=== PATIENT | male | born 1990 | race Caucasian/White ===

== ENCOUNTER 2017-07-15 00:50 | Emergency (ER) | payer MEDICAID | END 2017-07-15 01:13 | disposition home or self-care (01) | LOC: D.ER 00:50 | DX: J06.9 Acute upper respiratory infection, unspecified (principal); J20.9 Acute bronchitis, unspecified; R51 Headache; H92.02 Otalgia, left ear; F17.200 Nicotine dependence, unspecified, uncomplicated ==

== ENCOUNTER 2017-12-10 19:35 | Emergency (ER) | payer MEDICAID ==
[~2017-12-10] VITALS: Ht 177.8 cm; Wt 84.1 kg
[2017-12-10 19:43] VITALS: Ht 177.8 cm; Wt 84.1 kg
[2017-12-10 20:04] LABS: HEMOGLOBIN 14.6 g/dL (13.5-17.5); LYMPHOCYTES 9.2 % (15-50); MCH 30.2 pg (26.0-34.0); MCHC 34.8 g/dL (31.0-37.0); MCV 86.8 fL (80.0-100.0); MEAN PLATELET VOLUME 8.8 fL (7.4-10.4); NEUTROPHILS 80.3 % (40-80); PLATELET COUNT 285 10x3/uL (130-400); RBC 4.84 10x6/uL (4.20-6.10); RDW 12.6 % (11.5-14.5); WBC 10.8 10x3/uL (4.8-10.8)
[2017-12-10 20:28] LABS: APPEARANCE CLEAR (CLEAR); BILIRUBIN NEGATIVE (NEGATIVE); COLOR YELLOW (YELLOW); GLUCOSE NEGATIVE (NEGATIVE); KETONE NEGATIVE (NEGATIVE); NITRITE NEGATIVE (NEGATIVE); PROTEIN NEGATIVE (NEGATIVE); SPECIFIC GRAVITY 1.005 (1.005-1.020); UROBILINOGEN NORMAL (NORMAL)
[2017-12-10] MEDS ORDERED: PHENERGAN DM SYR5 ML PO (21:16)
[2017-12-10] MEDS ORDERED: OMNICEF300 MG PO (21:16)
[2017-12-10 21:48] VITALS: BP 132/75
== END 2017-12-10 21:45 | disposition home or self-care (01) ==
LOC: D.ER 19:35
PROVIDERS: Family Medicine
DX: J02.9 Acute pharyngitis, unspecified (principal); R50.9 Fever, unspecified; R05 Cough; F17.200 Nicotine dependence, unspecified, uncomplicated